=== PATIENT | male | born 1935 | race Hispanic/Latino ===

== ENCOUNTER → 2018-08-30 | Outpatient (CLI) | payer MEDICARE ==
[2018-08-30 10:12] LABS: BASOPHILS % (AUTO) 0.2 % (0.0-5.0); HEMATOCRIT 42.8 % (42-54); LYMPHOCYTES % (AUTO) 37.2 % (21.0-51.0); MEAN CORPUSCULAR HEMOGLOBIN 31.7 pg (27.0-33.0); MEAN CORPUSCULAR HGB CONC 34.6 g/dL (32.0-36.0); MEAN CORPUSCULAR VOLUME 91.7 fL (79-99); MONOCYTES % (AUTO) 9.8 % (3.0-13.0); NEUTROPHILS % (AUTO) 48.8 % (40.0-77.0); NUCLEATED RED BLOOD CELLS 0.1 % (0.0-0.19); PLATELET COUNT (AUTO) 139 K/uL (130-400); RED BLOOD CELL COUNT(AUTO) 4.67 MIL/uL (4.50-6.20); RED CELL DISTRIBUTION WIDTH 13.3 % (11.0-15.5); WHITE BLOOD COUNT (AUTO) 6.8 K/uL (4.8-10.8)
[2018-08-30 10:20] LABS: HEMOGLOBIN A1C 7.5 % (4.0-6.0)
[2018-08-30 10:32] LABS: ALBUMIN 3.9 g/dL (3.5-5.0); BILIRUBIN,DIRECT 0.2 mg/dL (0.0-0.3); BILIRUBIN,TOTAL 0.6 mg/dL (0.2-1.0); CREATININE 0.9 mg/dL (0.5-1.5); POTASSIUM 3.9 mmol/L (3.5-5.1); THYROID STIMULATING HORMONE 0.87 uIU/mL (0.36-3.74); TOTAL PROTEIN, SERUM 7.3 g/dL (6.0-8.3); URIC ACID 3.6 mg/dL (2.6-7.2)
== END | disposition home or self-care (01) ==
LOC: LAB 08-29 14:13
PROVIDERS: ATTEND Internal Medicine
DX: Z12.5 Encounter for screening for malignant neoplasm of prostate (principal); E04.1 Nontoxic single thyroid nodule; G30.1 Alzheimer's disease with late onset; E03.9 Hypothyroidism, unspecified
CPT/HCPCS: 36415; 80053; 80061; 80076; 82043; 82270; 83036; 84153; 84154; 84443; 84550; 85025

== ENCOUNTER → 2018-10-02 | Outpatient (CLI) | payer OTHER, MEDICARE ==
[2018-10-02 09:40] LABS: INR 0.95 (0.85-1.15); PARTIAL THROMBOPLASTIN TIME 28.6 SEC (26.3-35.5)
--- NOTE | 2018-10-02 09:45 | NUR ---
U/S GD BX RIGHT THYROID NODULE PROCEDURE PERFORMED BY DR MARQUIS. PUNCTURE SITE RIGHT SIDE NECK AND PATIENT TOLERATED PROCEDURE WELL. SPECIMEN X 3 COLLECTED BY REFINISH TECHNICIANIVAN BARBOUR AND OF PATHOLOGY. END OF PROCEDURE AT 0955. BIOPSY NEEDLE REMOVED AND DRESSING APPLIED. NO BLEEDING NOTED. DISCHARGE INSTRUCTIONS GIVEN TO PATIENT AND VERBALIZED UNDERSTANDING. DISCHARGED AMBULATORY AAO X3 WITH NO C/O PAIN.
== END | disposition home or self-care (01) ==
LOC: RAH 07:41
PROVIDERS: ATTEND Internal Medicine
DX: E04.1 Nontoxic single thyroid nodule (principal); Z79.01 Long term (current) use of anticoagulants; Z79.899 Other long term (current) drug therapy
CPT/HCPCS: 36415; 60100; 76942; 85610; 85730; 88305; 88333; 88334

== ENCOUNTER → 2019-03-20 | Outpatient (CLI) | payer OTHER, MEDICARE | END | disposition home or self-care (01) | LOC: OIH 16:14 | PROVIDERS: ATTEND Internal Medicine | DX: J84.10 Pulmonary fibrosis, unspecified (principal); J44.9 Chronic obstructive pulmonary disease, unspecified; M47.815 Spondylosis without myelopathy or radiculopathy, thoracolumbar region | CPT/HCPCS: 71046 ==

== ENCOUNTER → 2020-01-17 | Outpatient (CLI) | payer MEDICARE | END | disposition home or self-care (01) | LOC: OIH 15:05 | PROVIDERS: ATTEND Internal Medicine | DX: M47.814 Spondylosis without myelopathy or radiculopathy, thoracic region (principal); M41.84 Other forms of scoliosis, thoracic region; M85.88 Other specified disorders of bone density and structure, other site | CPT/HCPCS: 72070 ==

== ENCOUNTER → 2022-12-07 | Outpatient (CLI) | payer OTHER, MEDICARE ==
[~2022-12-07] MED LIST: ATOR20TA65 PO; CARB-38 PO; DULO60CA64 PO; DUTA0.5C37 PO; FOLI0.4T6 PO; GLIM4TAB36 PO; IOHEXOL-350 75 ML VIAL IV ONE; MEMA10TA55 PO; OMEP20CA12 PO
== END | disposition home or self-care (01) ==
LOC: RAH 10:22
PROVIDERS: ATTEND Internal Medicine
DX: J84.10 Pulmonary fibrosis, unspecified (principal); J96.11 Chronic respiratory failure with hypoxia; J47.9 Bronchiectasis, uncomplicated; K44.9 Diaphragmatic hernia without obstruction or gangrene; I51.7 Cardiomegaly; N28.1 Cyst of kidney, acquired; M47.815 Spondylosis without myelopathy or radiculopathy, thoracolumbar region
CPT/HCPCS: 71260; Q9967

== ENCOUNTER → 2023-08-11 | Outpatient (CLI) | payer OTHER, MEDICARE ==
[~2023-08-11] MED LIST changes: -IOHEXOL-350 75 ML VIAL IV ONE; +MEMA10TA21 PO; -MEMA10TA55 PO
== END | disposition home or self-care (01) ==
LOC: RAH 13:07
PROVIDERS: ATTEND Internal Medicine
DX: K40.90 Unilateral inguinal hernia, without obstruction or gangrene, not specified as recurrent (principal); N20.0 Calculus of kidney; N28.1 Cyst of kidney, acquired
CPT/HCPCS: 74176

== ENCOUNTER → 2024-02-07 | Outpatient (CLI) | payer OTHER, MEDICARE | END | disposition home or self-care (01) | LOC: RAH 12:21 | PROVIDERS: ATTEND Internal Medicine | DX: S00.93XA Contusion of unspecified part of head, initial encounter (principal); G31.9 Degenerative disease of nervous system, unspecified; R90.82 White matter disease, unspecified; G93.6 Cerebral edema; X58.XXXA Exposure to other specified factors, initial encounter; Y93.89 Activity, other specified; Y92.89 Other specified places as the place of occurrence of the external cause; Y99.8 Other external cause status | CPT/HCPCS: 70450 ==